=== PATIENT | female | born 1965 | race Caucasian/White ===

== ENCOUNTER 2019-03-01 09:59 | Outpatient (REF) | payer BC, SELFPAY ==
[2019-03-01 21:06] LABS: Calculated LDL 190; Cholesterol 273 mg/dL (50-200); HDL Cholesterol 70 mg/dL (40-60); Triglyceride 65 mg/dL (30-150)
== END 2019-03-01 10:19 ==
LOC: NCHCN 09:59
PROVIDERS: PCP Registered Nurse; Visit Provider Internal Medicine
DX: L30.9 Dermatitis, unspecified (principal); Z00.00 Encounter for general adult medical examination without abnormal findings
CPT/HCPCS: 80061; 83721